=== PATIENT | female | born 1940 | race Caucasian/White ===

== ENCOUNTER 2017-12-16 10:32 | Observation (INO) ==
[2017-12-16] MEDS ORDERED: CLONIDINE HCL 0.1 MG TABLET PO ONE (11:20)
[2017-12-16] MEDS ORDERED: CLONIDINE HCL 0.1 MG TABLET ONE (11:26)
[2017-12-16 12:07] LABS: ALT 42 U/L (19-67); AST 31 U/L (0-48); Albumin * 3.9 gm/dl (3.4-5.0); Alkaline Phosphatase * 107 U/L (50-170); Anion Gap 13.4 mmol/L (6.8-13.8); BUN/Creatinine Ratio 24.1 (9.0-21.6); Bilirubin, Total 0.7 mg/dL (0.0-1.1); Blood Urea Nitrogen 27 mg/dL (3-23); Ca. Corrected For Albumin 8.8 mg/dL (8.4-10.2); Chloride 106 mmol/L (97-106); Glucose * 100 mg/dL (70-110); Potassium 4.4 mmol/L (3.4-4.6); Sodium 143 mmol/L (132-142); Total Protein 7.4 gm/dL (6.2-8.2)
[2017-12-16 12:08] LABS: BNP * 7596 pg/mL (5-550); Troponin I Less than 0.017 ng/ml (0.00-0.10)
[2017-12-16 12:33] LABS: Urine Appearance Clear (CLEAR); Urine Bilirubin Negative (NEGATIVE); Urine Blood Negative /ul (NEGATIVE); Urine Color Yellow; Urine Ketone Negative (NEGATIVE); Urine Nitrite Negative (NEGATIVE); Urine Protein Negative (NEGATIVE); Urine Urobilinogen Normal (NORMAL)
[2017-12-16 12:34] LABS: Urine Bacteria None Seen; Urine RBC None Seen /hpf (0-5); Urine WBC 0-5 /hpf (0-5)
[2017-12-16] MEDS ORDERED: NORMAL SALINE 1,000 ML IV PRN (12:59)
[2017-12-16] MEDS ORDERED: FUROSEMIDE 10 MG/ML VIAL IV ONE (12:59)
--- NOTE | 2017-12-16 13:10 | ERNOTE ---
Date of Service: 12/16/17 Time Seen by Provider: 12/16/17 11:03 Stated Complaint: SOB SINCE SUNDAY Presenting Symptoms:: cough, other - dyspnea Source: patient Exam Limitations: no limitations Immunizations: IMMUNIZATION HX Immunizations Up to Date Yes Allergies/Adverse Reactions: Allergies codeine Adverse Reaction (Mild, Verified 09/09/14 09:52) RASH, UPSET STOMACH Home Medications: HOME MEDICATIONS Cholecalciferol (Vitamin D3) [Vitamin D-3] 2,000 unit PO DAILY 08/28/14 [Last Taken Unknown] Isosorbide Mononitrate [Imdur] 60 mg PO DAILY 08/28/14 [Last Taken Unknown] Levothyroxine Sodium [Synthroid] 125 mcg PO DAILY 08/28/14 [Last Taken Unknown] Losartan Potassium [Cozaar] 25 mg PO QPM 08/28/14 [Last Taken Unknown] rOPINIRole HCL [Requip] 2 mg PO TID 08/28/14 [Last Taken Unknown] Aspirin [Aspirin EC] 81 mg PO DAILY 12/16/17 [Last Taken Unknown] Citalopram Hydrobromide [Citalopram HBr] 10 mg PO DAILY 12/16/17 [Last Taken Unknown] Omeprazole 40 mg PO DAILY 12/16/17 [Last Taken Unknown] Oxybutynin Chloride [Ditropan Xl] 10 mg PO TID 12/16/17 [Last Taken Unknown] Pravastatin Sodium 40 mg PO DAILY 12/16/17 [Last Taken Unknown] - History of Present Ilness Narrative: patient has not been taking meds, has become progressively more sob Timing: constant, getting worse Severity: moderate Frequency/Possible Cause: Reports: occasional episodes Modifying Factors - Improves: Reports: rest Modifying Factors - Worsens: Reports: activity Associated Symptoms: Reports: cough, shortness of breath Review of Systems - Narrative Narrative: hx of chf - Review of Systems Constitutional: Present: See HPI, weakness, fatigue, malaise EYE: Present: no symptoms reported ENT: Present: no symptoms reported Respiratory: Present: See HPI, shortness of breath, cough Cardiology: Present: no symptoms reported Gastrointestinal/Abdominal: Present: no symptoms reported Genitourinary: Present: no symptoms reported Musculoskeletal: Present: no symptoms reported Skin: Present: no symptoms reported Neurological: Present: no symptoms reported Endocrine: Present: no symptoms reported Hematologic/Lymphatic: Present: no symptoms reported Psych: Present: no symptoms reported All Other Systems: All systems neg except as marked Social History: Living Situations home Preferred Language Citizen Of [place] Psych History Hx of Depression Alcohol Use none Drug Use none Physical Exam - Physical Exam General Appearance: Present: mild distress, anxious Head Exam: Present: normal inspection, no evidence of injury Eye Exam: Normal inspection: bilateral, PERRL: bilateral, EOMI: bilateral Ears, Nose, Throat: Present: normal ENT inspection Neck: Present: normal inspection, nontender Respiratory: Present: respiratory distress, crackles, rales, rhonchi Cardiovascular/Chest: Present: regular rate, rhythm, no murmur, normal peripheral pulses Gastrointestinal/Abdominal: Present: normal bowel sounds, nontender, nondistended, soft, no organomegaly Back Exam: Present: normal inspection, normal range of motion, no CVA tenderness , no vertebral tenderness Extremity Exam: Present: normal inspection Neurological Exam: Present: alert, oriented, normal mood/affect, no motor/ sensory deficits DTR: N=norm/NB=norm/brisk/A=abs/DD=dull/dimin/HC=hyperactive: Bicep (R): Normal , Bicep (L): Normal, Tricep (R): Normal, Tricep (L): Normal, Knee (R): Normal, Knee (L): Normal, Ankle (R): Normal, Ankle (L): Normal Skin Exam: Present: normal color, warm/dry Lymphatic Exam: Present: no adenopathy ED Progress - Date and Time Seen: Date and Time: 12/16/17 13:07 conditiion unchanged, kiko discussed with dr walton - Results and Orders Patient's Lab Results:: I have reviewed the patient's lab results. - Vital Signs Patient's Vital Signs:: I have reviewed the patient's vital signs. Vital Signs: Vital Signs 12/16/17 10:54 12/16/17 11:30 12/16/17 11:34 Temperature 36.4 C Pulse Rate 70 71 71 Respiratory Rate 18 20 Blood Pressure 179/100 H 179/100 H O2 Sat by Pulse Oximetry 95 93 12/16/17 12:00 12/16/17 12:33 Temperature Pulse Rate 63 63 Respiratory Rate 20 18 Blood Pressure 177/73 H 178/80 H O2 Sat by Pulse Oximetry 94 95 - EKG EKG: NSR, RBBB, no ST T wave changes EKG read: Interp. by me - X-Ray X-Ray #1 X-Ray: chest - pulmonary edema Interpretation: Interp. by me - Progress/Reassessment Chief Complaint: Upper Respiratory Symptoms Progress:: Unchanged - Transfer of Care Expected Disposition: Admit Plan - Plan Plan: to be admitted Departure Clinical Impression: Congestive heart failure (CHF), Hypertension - Departure Disposition: Still a patient Condition: Fair Referrals: Evelin Bean MD [Primary Care Provider] -
[2017-12-16 13:40] LABS: Hematocrit 39.1 % (37.0-47.0); Hemoglobin 12.3 gm/dL (12.5-16.0); Mean Cell Volume 86.7 fl (78-100); Mean Corpuscular Hemoglobin 27.3 pg (27-31); Mean Corpuscular Hgb Conc 31.5 g/dl (32-36); Mean Platelet Volume 10.7 fl (8-12.5); Neutrophil % 66.6 % (42-75.0); Platelet Count 213 K/mm3 (150-450); Red Blood Count 4.51 M/mm3 (4.2-5.4); Red Cell Distribution Width 15.7 % (11.5-14.0); White Blood Count 7.5 K/mm3 (4.0-10.5)
[2017-12-16] MEDS ORDERED: FUROSEMIDE 10 MG/ML VIAL ONE (13:53)
--- NOTE | 2017-12-16 15:31 | HP ---
Chief Complaint - Chief Complaint Date of Service: 12/16/17 Time of Service: 15:17 Chief Complaint: Shortness of breath with dyspnea on minor exertion History of Present Illness: Mrs. Soto is a 77-year-old female who is sitting up on a bedside commode at the time of my visit.She states because of the diuretics that she's been getting she can't get up because since she does she has to urinate again. So the exam took place with her on the bedside commode. She presented to the emergency room early today complaining of shortness of breath and increasing dyspnea on exertion and increasing edema. Also her blood pressure and been higher and she was having some dizziness and lightheadedness sensation from that. In the emergency room she had an initial blood pressure 220/109 which was treated with clonidine and at this time blood pressure is 149/ 79. Her head discomfort and lightheadedness symptoms have subsided. She is breathing quite a lot easier already. She has some minor orthopnea. But mostly changing positions cause shortness of breath. She is in very good spirits. She blames herself for this happening because she hadn't been taking her medicine as prescribed. Medical History (Last Updated 12/16/17 @ 13:45 by Ashwini Chow RN) Depression GERD (gastroesophageal reflux disease) Hernia Hyperlipidemia Hypertension Hypothyroidism Uterine cancer Surgical History: Surgical History (Last Updated 12/16/17 @ 13:45 by Ashwini Chow RN) History of heart artery stent History of hysterectomy History of total knee replacement Social History: Patient Lives/Resources Home Utilized Living Situations home Occupation retired Preferred Language Marshallese Do you have any tenriism or Yes: Denominational cultural preference? Smoking Status Never smoker Have you smoked in the past 12 No months Do you dip or chew tobacco No Psych History Hx of Depression Alcohol Use none Drug Use none Review Of Systems (GEN) - Review of Systems Generalized/Overall Review: Present: Weakness, Weight gain EENTM: Present: No Symptoms Reported Respiratory: Present: Shortness of Breath, Orthopnea Cardiac: Present: No Symptoms Reported, Other - Feelings of lightheadedness Abdominal: Present: No Symptoms Reported Genitourinary: Present: No Symptoms Reported Musculoskeletal: Present: No Symptoms Reported Neurological: Present: No Symptoms Reported Skin: Present: No Symptoms Reported Endocrine: Present: No Symptoms Reported Immunizations: IMMUNIZATION HX Immunizations Up to Date Yes Allergies/Adverse Reactions: Allergies Allergy/AdvReac Type Severity Reaction Status Date / Time codeine AdvReac Mild RASH, Verified 12/16/17 15:08 UPSET STOMACH Home Medications: HOME MEDICATIONS Isosorbide Mononitrate [Imdur] 60 mg PO DAILY 08/28/14 [Last Taken 12/15/17] Levothyroxine Sodium [Synthroid] 125 mcg PO DAILY 08/28/14 [Last Taken 12/16/17 08:00] Losartan Potassium [Cozaar] 25 mg PO QPM 08/28/14 [Last Taken 12/15/17] rOPINIRole HCL [Requip] 2 mg PO TID 08/28/14 [Last Taken Unknown] Aspirin [Aspirin EC] 81 mg PO DAILY 12/16/17 [Last Taken 12/16/17 08:00] Citalopram Hydrobromide [Citalopram HBr] 10 mg PO DAILY 12/16/17 [Last Taken Unknown] Omeprazole 40 mg PO DAILY 12/16/17 [Last Taken Unknown] Oxybutynin Chloride [Ditropan Xl] 10 mg PO TID 12/16/17 [Last Taken Unknown] Pravastatin Sodium 40 mg PO DAILY 12/16/17 [Last Taken Unknown] Exam - Exam Vital Signs: Vital Signs - Last Taken Temp 36.6 C 12/16/17 15:13 Pulse 69 12/16/17 15:13 Resp 20 12/16/17 15:13 BP 142/90 H 12/16/17 15:13 Pulse Ox 91 L 12/16/17 15:13 Constitutional: Present: Alert, Oriented x3, Cooperative, Well developed, Well nourished, No distress ENT Exam: Present: normal ENT inspection, hearing grossly normal, pharynx normal , TMs normal Eye Exam: bilateral eye: normal inspection, PERRL, EOMI Neck: Present: non-tender, full range of motion, supple, normal inspection, trachea midline Back Exam: Present: normal inspection, no CVA tenderness, no vertebral tenderness Breasts: Present: Exam deferred Respiratory: Present: decreased breath sounds, rales, No wheezing Cardiovascular/Chest: Present: normal peripheral pulses, regular rate, rhythm, no chest tenderness, edema Peripheral Pulses: carotid (R): 2+, carotid (L): 2+, radial (R): 2+, radial (L) : 2+ Abdomen: Present: Normal bowel sounds, soft, nontender, nondistended, no rebound tenderness, no hepatospenomegaly, no masses, obese /Rectal: Present: Exam deferred, External genitalia normal Extremity: Present: normal range of motion, non-tender, normal inspection, pedal edema Skin Exam: Present: normal color, warm/dry, no cyanosis Lymphatic: Present: no adenopathy Neurologic: Present: cream maker II-XII nml as tested, normal cerebellar test, no motor/ sensory deficits, oriented x 3. Absent: abnormal gait Appearance: Present: appropriate appearance, appropriate insight, neat, no memory impairment Eye contact: Present: cooperative, good eye contact, normal speech Thoughts: Present: normal thought pattern, no apparent hallucination Diagnostic Studies: Abnormal Lab Results 12/16/17 12/16/17 Range/Units 11:12 11:33 Hgb 12.3 L (12.5-16.0) gm/dL MCHC 31.5 L (32-36) g/dl RDW 15.7 H (11.5-14.0) % Immature Gran % (Auto) 0.80 H (0.001-0.429) % Immature Gran # (Auto) 0.06 H (0.000-0.0310) K/mm3 Basophils % 1.1 H (0.0-1.0) % Sodium 143 H (132-142) mmol/L Plasma Sodium 143 H (130-142) mmol/L BUN 27 H (3-23) mg/dL Est GFR (Non-Af Amer) 50 L (60-130) mL/min BUN/Creatinine Ratio 24.1 H (9.0-21.6) B-Natriuretic Peptide 7596 H (5-550) pg/mL Laboratory Results WBC 7.5 K/mm3 (4.0-10.5) 12/16/17 11:12 RBC 4.51 M/mm3 (4.2-5.4) 12/16/17 11:12 Hgb 12.3 gm/dL (12.5-16.0) L 12/16/17 11:12 Hct 39.1 % (37.0-47.0) 12/16/17 11:12 MCV 86.7 fl (78-100) 12/16/17 11:12 MCH 27.3 pg (27-31) 12/16/17 11:12 MCHC 31.5 g/dl (32-36) L 12/16/17 11:12 RDW 15.7 % (11.5-14.0) H 12/16/17 11:12 Plt Count 213 K/mm3 (150-450) 12/16/17 11:12 MPV 10.7 fl (8-12.5) 12/16/17 11:12 Immature Gran % (Auto) 0.80 % (0.001-0.429) H 12/16/17 11:12 Immature Gran # (Auto) 0.06 K/mm3 (0.000-0.0310) H 12/16/17 11:12 Neutrophils % 66.6 % (42-75.0) 12/16/17 11:12 Lymphocytes % 23.8 % (20-51) 12/16/17 11:12 Monocytes % 6.6 % (0.0-9) 12/16/17 11:12 Eosinophils % 1.1 % (0.0-3.0) 12/16/17 11:12 Basophils % 1.1 % (0.0-1.0) H 12/16/17 11:12 Nucleated RBC % 0.0 k/mm3 (0-1) 12/16/17 11:12 Neutrophils # 5.0 K/mm3 (1.3-6.0) 12/16/17 11:12 Lymphocytes # 1.78 k/mm3 (1.5-3.5) 12/16/17 11:12 Monocytes # 0.5 k/mm3 (0.0-1.0) 12/16/17 11:12 Eosinophils # 0.1 k/mm3 (0.0-0.7) 12/16/17 11:12 Absolute Basophils 0.1 k/mm3 (0.0-0.1) 12/16/17 11:12 Sodium 143 mmol/L (132-142) H 12/16/17 11:33 Plasma Sodium 143 mmol/L (130-142) H 12/16/17 11:33 Potassium 4.4 mmol/L (3.4-4.6) 12/16/17 11:33 Chloride 106 mmol/L (97-106) 12/16/17 11:33 Carbon Dioxide 28.0 mmol/L (24-32.6) 12/16/17 11:33 Anion Gap 13.4 mmol/L (6.8-13.8) 12/16/17 11:33 BUN 27 mg/dL (3-23) H 12/16/17 11:33 Creatinine 1.12 mg/dL (0.4-1.4) 12/16/17 11:33 Est GFR (Non-Af Amer) 50 mL/min (60-130) L 12/16/17 11:33 BUN/Creatinine Ratio 24.1 (9.0-21.6) H 12/16/17 11:33 Random Glucose 100 mg/dL (70-110) 12/16/17 11:33 Calcium 9.0 mg/dL (7.9-10.9) 12/16/17 11:33 Calcium Adj for Albumin 8.8 mg/dL (8.4-10.2) 12/16/17 11:33 Total Bilirubin 0.7 mg/dL (0.0-1.1) 12/16/17 11:33 AST 31 U/L (0-48) 12/16/17 11:33 ALT 42 U/L (19-67) 12/16/17 11:33 Alkaline Phosphatase 107 U/L (50-170) 12/16/17 11:33 Troponin I Less than 0.017 ng/ml (0.00-0.10) 12/16/17 11:33 B-Natriuretic Peptide 7596 pg/mL (5-550) H 12/16/17 11:33 Total Protein 7.4 gm/dL (6.2-8.2) 12/16/17 11:33 Albumin 3.9 gm/dl (3.4-5.0) 12/16/17 11:33 Urine Color Yellow 12/16/17 11:21 Urine Appearance Clear (CLEAR) 12/16/17 11:21 Urine pH 6.0 pH (5.0-7.0) 12/16/17 11:21 Ur Specific [place] 1.020 SP.GR. (1.005-1.010) 12/16/17 11:21 Urine Protein Negative mg/dL (NEGATIVE) 12/16/17 11:21 Urine Glucose (UA) Negative mg/dL (NEGATIVE) 12/16/17 11:21 Urine Ketones Negative mg/dL (NEGATIVE) 12/16/17 11:21 Urine Blood Negative /ul (NEGATIVE) 12/16/17 11:21 Urine Nitrate Negative (NEGATIVE) 12/16/17 11:21 Urine Bilirubin Negative mg/dl (NEGATIVE) 12/16/17 11:21 Urine Urobilinogen Normal EU/dl (NORMAL) 12/16/17 11:21 Ur Leukocyte Esterase Negative /ul (NEGATIVE) 12/16/17 11:21 Urine RBC None seen /hpf (0-5) 12/16/17 11:21 Urine WBC 0-5 /hpf (0-5) 12/16/17 11:21 Ur Epithelial Cells 0-5 /hpf (0-5) 12/16/17 11:21 Urine Bacteria None seen (NONE) 12/16/17 11:21 Urine Culture Comments No culture indicated 12/16/17 11:21 Assessment/Plan - Assessment/Plan (1) Congestive heart failure (CHF) Problem: Acute (2) Hypertension Problem: Acute
[2017-12-16] MEDS ORDERED: ACETAMINOPHEN 500 MG TABLET PO PRN (15:42)
[2017-12-16] MEDS: LOSARTAN POTASSIUM 50 MG TABLET PO SCH (17:48)
[2017-12-16] MEDS: OXYBUTYNIN CHLORIDE 5 MG TABLET PO SCH (17:52)
[2017-12-16] MEDS: rOPINIRole HCL 1 MG TABLET PO SCH (17:52)
[2017-12-16] MEDS: FUROSEMIDE 10 MG/ML VIAL IV SCH ×2 (19:44→20:00)
[2017-12-17 05:11] LABS: Hematocrit 38.8 % (37.0-47.0); Hemoglobin 12.1 gm/dL (12.5-16.0); Mean Cell Volume 86.2 fl (78-100); Mean Corpuscular Hemoglobin 26.9 pg (27-31); Mean Corpuscular Hgb Conc 31.2 g/dl (32-36); Mean Platelet Volume 10.7 fl (8-12.5); Neutrophil % 57.6 % (42-75.0); Platelet Count 190 K/mm3 (150-450); Red Cell Distribution Width 15.4 % (11.5-14.0); White Blood Count 7.3 K/mm3 (4.0-10.5)
[2017-12-17 05:12] LABS: Neutrophil # 4.2 K/mm3 (1.3-6.0)
[2017-12-17 05:14] LABS: BUN/Creatinine Ratio 21.9 (9.0-21.6); Calcium * 9.1 mg/dL (7.9-10.9); Carbon Dioxide 31.9 mmol/L (24-32.6); Estimated Creat Clear 30.1; Magnesium 2.2 mg/dL (1.2-2.8); Potassium 3.9 mmol/L (3.4-4.6)
[2017-12-17] MEDS: PANTOPRAZOLE SODIUM 40 MG TABLET.EC PO SCH (07:02)
[2017-12-17] MEDS: LEVOTHYROXINE SODIUM 100 MCG TABLET PO SCH (07:02)
[2017-12-17] MEDS: OXYBUTYNIN CHLORIDE 5 MG TABLET PO SCH ×3 (08:53→20:21)
[2017-12-17] MEDS: CITALOPRAM HYDROBROMIDE 10 MG TABLET PO SCH (08:53)
[2017-12-17] MEDS: ISOSORBIDE MONONITRATE 60 MG TAB.SR.24H PO SCH (08:54)
[2017-12-17] MEDS: ASPIRIN 81 MG TABLET.DR PO SCH (08:54)
[2017-12-17] MEDS: rOPINIRole HCL 1 MG TABLET PO SCH ×3 (08:55→20:21)
[2017-12-17] MEDS: FUROSEMIDE 10 MG/ML VIAL IV SCH ×2 (08:57→20:22)
[2017-12-17] MEDS ORDERED: ROSUVASTATIN CALCIUM 20 MG TABLET PO SCH ×2 (09:00→21:00)
[2017-12-17] MEDS ORDERED: PROCHLORPERAZINE MALEATE 10 MG TABLET PO ONE ×2 (15:14→18:28)
[2017-12-17] MEDS: LOSARTAN POTASSIUM 50 MG TABLET PO SCH (17:31)
--- NOTE | 2017-12-17 18:46 | PN ---
Subjective - Date and Time Seen Date: 12/17/17 Time: 12:45 Subjective Narrative: Mrs Soto has felt well this morning and was looking forward to going home. She has diuresed 4 liters of urine since admission. However now she had developed some nausea and feels like emesis is imminent. She requesting something for nausea. I will try compazine 5mg. I will reevaluate her this evening to see if she can go home. Objective - Review of Systems Generalized/Overall Review: Reports: Weakness, Malaise EENTM: Reports: No Symptoms Reported Respiratory: Reports: No Symptoms Reported Cardiac: Reports: No Symptoms Reported Abdominal: Reports: Nausea. Denies: Vomiting Genitourinary Symptoms: Reports: No Symptoms Reported Musculoskeletal Complaints: Reports: No Symptoms Reported Neurological: Reports: No Symptoms Reported Skin: Reports: No Symptoms Reported Endocrine: Reports: No Symptoms Reported - Vitals Vitals: Last Vital Signs Temp 36.7 C 12/17/17 14:22 Pulse 55 L 12/17/17 17:31 Resp 12 12/17/17 17:10 BP 156/71 H 12/17/17 17:31 Pulse Ox 95 12/17/17 14:22 - Abnormal Lab Findings Abnormal Lab Findings: Abnormal Lab Results 12/17/17 12/17/17 Range/Units 05:00 05:00 Hgb 12.1 L (12.5-16.0) gm/dL MCH 26.9 L (27-31) pg MCHC 31.2 L (32-36) g/dl RDW 15.4 H (11.5-14.0) % Est GFR (Non-Af Amer) 54 L (60-130) mL/min BUN/Creatinine Ratio 21.9 H (9.0-21.6) - Exam Constitutional: Present: Alert, Oriented x3, Cooperative, Well developed, Well nourished, No distress ENT Exam: Present: normal ENT inspection, hearing grossly normal, pharynx normal , TMs normal Neck: Present: non-tender, full range of motion, supple, normal inspection, trachea midline Breasts: Present: Exam deferred Respiratory: Present: chest non-tender, lungs clear. Absent: crackles, rales, rhonchi, wheezing Cardiovascular/Chest: Present: normal peripheral pulses, regular rate, rhythm, no chest tenderness, edema - In the feet and ankles. Abdomen: Present: Normal bowel sounds, soft, nontender, nondistended, no rebound tenderness, no hepatospenomegaly, no masses /Rectal: Present: Exam deferred Extremity: Present: normal range of motion Skin Exam: Present: normal color Lymphatic: Present: no adenopathy Neurologic: Present: console manager II-XII nml as tested Appearance: Present: appropriate appearance, appropriate insight, neat, no memory impairment Eye contact: Present: cooperative, good eye contact, normal speech Thoughts: Present: normal thought pattern Assessment/Plan - Problems/Diagnosis (1) Congestive heart failure (CHF) Problem: Resolved Qualifiers: Heart failure type: combined systolic and diastolic Heart failure chronicity: acute Qualified Code(s): I50.41 - Acute combined systolic ( congestive) and diastolic (congestive) heart failure (2) Hypertension Problem: Chronic Qualifiers: Hypertension type: essential hypertension Qualified Code(s): I10 - Essential (primary) hypertension (3) Nausea alone Problem: Acute Narrative: The cause of the nausea is unknown
[2017-12-17] MEDS ORDERED: PROCHLORPERAZINE MALEATE 10 MG TABLET ONE (20:13)
[2017-12-18] MEDS ORDERED: PROCHLORPERAZINE MALEATE 10 MG TABLET PO PRN (00:01)
[2017-12-18 05:51] LABS: Anion Gap 9.1 mmol/L (6.8-13.8); BUN/Creatinine Ratio 19.4 (9.0-21.6); Calcium * 9.1 mg/dL (7.9-10.9); Carbon Dioxide 33.5 mmol/L (24-32.6); Estimated Creat Clear 29.3; Potassium 3.6 mmol/L (3.4-4.6)
[2017-12-18 05:56] LABS: Hematocrit 39.8 % (37.0-47.0); Hemoglobin 12.5 gm/dL (12.5-16.0); Mean Cell Volume 84.5 fl (78-100); Mean Corpuscular Hemoglobin 26.5 pg (27-31); Mean Corpuscular Hgb Conc 31.4 g/dl (32-36); Mean Platelet Volume 10.6 fl (8-12.5); Neutrophil # 3.9 K/mm3 (1.3-6.0); Neutrophil % 55.1 % (42-75.0); Platelet Count 217 K/mm3 (150-450); Red Blood Count 4.71 M/mm3 (4.2-5.4); Red Cell Distribution Width 15.1 % (11.5-14.0)
[2017-12-18] MEDS: PANTOPRAZOLE SODIUM 40 MG TABLET.EC PO SCH (06:38)
[2017-12-18] MEDS: LEVOTHYROXINE SODIUM 100 MCG TABLET PO SCH (06:38)
--- NOTE | 2017-12-18 08:48 | DS ---
(1) Congestive heart failure (CHF) Problem: Resolved Qualifiers: Heart failure type: combined systolic and diastolic Heart failure chronicity: acute Qualified Code(s): I50.41 - Acute combined systolic ( congestive) and diastolic (congestive) heart failure (2) Hypertension Problem: Chronic Qualifiers: Hypertension type: essential hypertension Qualified Code(s): I10 - Essential (primary) hypertension (3) Nausea alone Problem: Resolved Description of Stay: Mariam Soto is a 77-year-old female admitted through ER with congestive heart failure. She presented short of breath with orthopnea. Her BNP was over 1100. She had inspiratory rales and expiratory wheezes. She was tachypnea and mildly hypoxemic. She was diuresed with Lasix and gave up 4 L of fluid easily in the first 24 hours. I had intended to discharge her yesterday but at noon she developed nausea and felt like she was going to vomit at any time. She didn't eat any lunch. I gave her some Compazine which helped at 5 mg but didn't completely resolve it. I gave her another 5 mg and that did seem to resolve it. This morning she is feeling much better. She has eaten breakfast and has no nausea. She is breathing easily. She is in no distress at all this morning. She is leaving for going home. I'll follow her in the office in 2 weeks. Procedures Performed: none Results and Findings: Lab Pending Results 12/16/17 12/16/17 12/16/17 11:12 11:21 11:33 WBC 7.5 RBC 4.51 Hgb 12.3 L Hct 39.1 MCV 86.7 MCH 27.3 MCHC 31.5 L RDW 15.7 H Plt Count 213 MPV 10.7 Immature Gran % (Auto) 0.80 H Immature Gran # (Auto) 0.06 H Neutrophils % 66.6 Lymphocytes % 23.8 Monocytes % 6.6 Eosinophils % 1.1 Basophils % 1.1 H Nucleated RBC % 0.0 Neutrophils # 5.0 Lymphocytes # 1.78 Monocytes # 0.5 Eosinophils # 0.1 Absolute Basophils 0.1 Sodium 143 H Plasma Sodium 143 H Potassium 4.4 Chloride 106 Carbon Dioxide 28.0 Anion Gap 13.4 BUN 27 H Creatinine 1.12 Est GFR (Non-Af Amer) 50 L BUN/Creatinine Ratio 24.1 H Random Glucose 100 Calcium 9.0 Calcium Adj for Albumin 8.8 Magnesium Total Bilirubin 0.7 AST 31 ALT 42 Alkaline Phosphatase 107 Troponin I Less than 0.017 B-Natriuretic Peptide 7596 H Total Protein 7.4 Albumin 3.9 Urine Color Yellow Urine Appearance Clear Urine pH 6.0 Ur Specific [place] 1.020 Urine Protein Negative Urine Glucose (UA) Negative Urine Ketones Negative Urine Blood Negative Urine Nitrate Negative Urine Bilirubin Negative Urine Urobilinogen Normal Ur Leukocyte Esterase Negative Urine RBC None seen Urine WBC 0-5 Ur Epithelial Cells 0-5 Urine Bacteria None seen Urine Culture Comments No culture indicated 12/17/17 12/17/17 12/18/17 05:00 05:00 05:40 WBC 7.3 7.0 RBC 4.50 4.71 Hgb 12.1 L 12.5 Hct 38.8 39.8 MCV 86.2 84.5 MCH 26.9 L 26.5 L MCHC 31.2 L 31.4 L RDW 15.4 H 15.1 H Plt Count 190 217 MPV 10.7 10.6 Immature Gran % (Auto) 0.40 0.40 Immature Gran # (Auto) 0.03 0.03 Neutrophils % 57.6 55.1 Lymphocytes % 31.6 33.1 Monocytes % 2.3 7.8 Eosinophils % 0.7 2.7 Basophils % 0.4 0.9 Nucleated RBC % 0.0 0.0 Neutrophils # 4.2 3.9 Lymphocytes # 2.30 2.33 Monocytes # 0.5 0.6 Eosinophils # 0.2 0.2 Absolute Basophils 0.1 0.1 Sodium 141 Plasma Sodium 141 Potassium 3.9 Chloride 102 Carbon Dioxide 31.9 Anion Gap 11.0 BUN 23 Creatinine 1.05 Est GFR (Non-Af Amer) 54 L BUN/Creatinine Ratio 21.9 H Random Glucose 93 Calcium 9.1 Calcium Adj for Albumin Magnesium 2.2 Total Bilirubin AST ALT Alkaline Phosphatase Troponin I B-Natriuretic Peptide Total Protein Albumin Urine Color Urine Appearance Urine pH Ur Specific [place] Urine Protein Urine Glucose (UA) Urine Ketones Urine Blood Urine Nitrate Urine Bilirubin Urine Urobilinogen Ur Leukocyte Esterase Urine RBC Urine WBC Ur Epithelial Cells Urine Bacteria Urine Culture Comments 12/18/17 05:40 WBC RBC Hgb Hct MCV MCH MCHC RDW Plt Count MPV Immature Gran % (Auto) Immature Gran # (Auto) Neutrophils % Lymphocytes % Monocytes % Eosinophils % Basophils % Nucleated RBC % Neutrophils # Lymphocytes # Monocytes # Eosinophils # Absolute Basophils Sodium 140 Plasma Sodium 140 Potassium 3.6 Chloride 101 Carbon Dioxide 33.5 H Anion Gap 9.1 BUN 21 Creatinine 1.08 Est GFR (Non-Af Amer) 52 L BUN/Creatinine Ratio 19.4 Random Glucose 87 Calcium 9.1 Calcium Adj for Albumin Magnesium Total Bilirubin AST ALT Alkaline Phosphatase Troponin I B-Natriuretic Peptide Total Protein Albumin Urine Color Urine Appearance Urine pH Ur Specific [place] Urine Protein Urine Glucose (UA) Urine Ketones Urine Blood Urine Nitrate Urine Bilirubin Urine Urobilinogen Ur Leukocyte Esterase Urine RBC Urine WBC Ur Epithelial Cells Urine Bacteria Urine Culture Comments Discharge Location: Home Disposition: Home self-care Condition: Fair Face to Face Encounter completed per [facility] Guidelines: No Discharge Activity: Activity as tolerated Discharge Diet: Low salt, High Fiber Referrals: Jose Manuel Figueroa DO [Primary Care Provider] - Problem Oriented Discharge Instructions to Patient/Family: Heart Failure, Easy- to-Read Print Language (Tanzanian or Khmer Available): Tanzanian Additional Patient Instructions (free text): -Please make TCM appointment unless prison discharge. Thank you! Sasha @ [phone].-Please make TCM appointment unless prison discharge. Thank you ! Sasha @ [phone]. See me in the office in 2 weeks. Prescriptions (Any new or edited meds): Furosemide [Lasix] 40 mg PO DAILY PRN #30 tablet PRN Reason: Edema Complete Home Medications List: Complete Home Medication List: Isosorbide Mononitrate [Imdur] 60 mg PO DAILY 08/28/14 Levothyroxine Sodium [Synthroid] 125 mcg PO DAILY 08/28/14 Losartan Potassium [Cozaar] 25 mg PO QPM 08/28/14 rOPINIRole HCL [Requip] 2 mg PO TID 08/28/14 Aspirin [Aspirin EC] 81 mg PO DAILY 12/16/17 Citalopram Hydrobromide [Citalopram HBr] 10 mg PO DAILY 12/16/17 Omeprazole 40 mg PO DAILY 12/16/17 Oxybutynin Chloride [Ditropan Xl] 10 mg PO TID 12/16/17 Pravastatin Sodium 40 mg PO DAILY 12/16/17 Acetaminophen [Tylenol] 500 mg PO Q6H PRN tablet 12/18/17 Furosemide [Lasix] 40 mg PO DAILY PRN #30 tablet 12/18/17
[2017-12-18] MEDS: rOPINIRole HCL 1 MG TABLET PO SCH (10:19)
[2017-12-18] MEDS: OXYBUTYNIN CHLORIDE 5 MG TABLET PO SCH (10:20)
[2017-12-18] MEDS: ISOSORBIDE MONONITRATE 60 MG TAB.SR.24H PO SCH (10:21)
[2017-12-18] MEDS: ASPIRIN 81 MG TABLET.DR PO SCH (10:21)
[2017-12-18] MEDS: CITALOPRAM HYDROBROMIDE 10 MG TABLET PO SCH (10:22)
[2017-12-18 11:08] VITALS: BP 143/57
== END 2017-12-18 11:30 | disposition home or self-care (01) ==
LOC: ER 10:32 → INTOOBSV 13:06 → MS 13:06
PROVIDERS: ADMIT Family Medicine; ATTEND Family Medicine
DX: Z68.42 Body mass index [BMI] 45.0-49.9, adult; R11.0 Nausea; F32.9 Major depressive disorder, single episode, unspecified; I50.41 Acute combined systolic (congestive) and diastolic (congestive) heart failure; K21.9 Gastro-esophageal reflux disease without esophagitis; E03.9 Hypothyroidism, unspecified; E78.5 Hyperlipidemia, unspecified; I10 Essential (primary) hypertension
CPT/HCPCS: 36415; 71020; 71046; 80048; 80053; 81001; 83519; 83735; 83880; 84484; 85025; 93005; 96374; 96376; 99284; G0378